=== PATIENT | female | born 1935 | race Asian ===

== ENCOUNTER 2021-12-29 15:35 | Inpatient (IN) | payer OTHER ==
[~2021-12-29] VITALS: Ht 152.4 cm; Wt 59.0 kg
[2021-12-29 16:35] VITALS: BP 124/69
[2021-12-29] MEDS ORDERED: ACETAMINOPHEN 325 MG TABLET PO PRN (17:00)
[2021-12-29] MEDS ORDERED: PNEUMOCOCCAL VACCINE POLYVALENT 0.5 ML VIAL [PPSV23] IM. ONE (19:00)
[2021-12-29 20:30] VITALS: BP 119/79
[2021-12-29] MEDS: METOPROLOL TARTRATE 25 MG TABLET PO SCH (23:20)
[2021-12-29] MEDS: AMOX TR/POT CLAV 500 MG/125 MG TABLET PO SCH (23:20)
[2021-12-29] MEDS: MELATONIN 3 MG TABLET PO PRN (23:21)
[2021-12-29] MEDS: ETHYL ALCOHOL 62% ANTISEPTIC NASAL SANITIZER 0.6 ML AMPUL NASAL SCH (23:21)
[2021-12-29] MEDS: DOCUSATE SODIUM 100 MG CAPSULE PO SCH (23:21)
[2021-12-30 07:39] LABS: BASOPHILS % (AUTO) 0.5 % (0.0-2.0); EOSINOPHILS % (AUTO) 2.5 % (1.0-6.0); HEMATOCRIT 32.8 % (36-46); HEMOGLOBIN 10.7 g/dL (12.0-16.0); LYMPHOCYTES # (AUTO) 1.2 K/uL (1.0-4.8); LYMPHOCYTES % (AUTO) 11.7 % (22.0-44.0); MEAN CORPUSCULAR HEMOGLOBIN 30.5 pg (26.0-34.0); MEAN CORPUSCULAR HGB CONC 32.7 G/dL (31.0-37.0); MEAN CORPUSCULAR VOLUME 93 fL (80-100); MONOCYTES # (AUTO) 0.8 K/uL (0.1-1.0); MONOCYTES % (AUTO) 8.2 % (2.0-9.0); NEUTROPHILS # (AUTO) 7.7 K/uL (1.8-7.7); NEUTROPHILS % (AUTO) 77.1 % (40.0-70.0); PLATELET COUNT (AUTO) 317 K/uL (150-450); RED BLOOD CELL COUNT(AUTO) 3.52 MIL/uL (4.00-5.20); RED CELL DISTRIBUTION WIDTH 14.8 % (11.5-14.5)
[2021-12-30 07:56] LABS: ALANINE AMINOTRANSFERASE 18 U/L (12-78); ALBUMIN 3.4 g/dL (3.4-5.0); ALKALINE PHOSPHATASE 63 U/L (46-116); ANION GAP 6 mmol/L (8-16); ASPARTATE AMINOTRANSFERASE 19 U/L (15-37); BILIRUBIN,TOTAL 1.5 mg/dL (0.1-1.0); CALCIUM, TOTAL 8.8 mg/dL (8.8-10.5); CARBON DIOXIDE 28 mmol/L (22-29); CHLORIDE 102 mmol/L (98-107); CREATININE 0.84 mg/dL (0.60-1.30); GLOMERULAR FILTR. RATE CALC > 60 mL/min (>60); GLUCOSE,RANDOM 109 mg/dL (70-110); POTASSIUM 4.1 mmol/L (3.5-5.1); SODIUM SERUM 136 mmol/L (136-145); TOTAL PROTEIN, SERUM 6.7 g/dL (6.4-8.2); UREA NITROGEN, BLOOD 19 mg/dL (7-18)
[2021-12-30] MEDS: MULTIVITAMINS WITH MINERALS, THERAPEUTIC TABLET PO SCH (08:07)
[2021-12-30] MEDS: AMOX TR/POT CLAV 500 MG/125 MG TABLET PO SCH ×2 (08:07→20:31)
[2021-12-30] MEDS: ASPIRIN 81 MG CHEWABLE TABLET PO SCH (08:07)
[2021-12-30] MEDS: ETHYL ALCOHOL 62% ANTISEPTIC NASAL SANITIZER 0.6 ML AMPUL NASAL SCH ×2 (08:08→20:31)
[2021-12-30] MEDS: DOCUSATE SODIUM 100 MG CAPSULE PO SCH ×2 (08:09→20:32)
[2021-12-30] MEDS: SENNA 187 MG TABLET PO SCH (08:09)
[2021-12-30] MEDS: METOPROLOL TARTRATE 25 MG TABLET PO SCH ×2 (08:09→20:32)
[2021-12-30 08:15] VITALS: BP 128/74
[2021-12-30] MEDS ORDERED: AmLODIPine BESYLATE 10 MG TABLET PO SCH (09:00)
[2021-12-30] MEDS ORDERED: ATORVASTATIN CALCIUM 10 MG TABLET PO SCH (09:00)
[2021-12-30] MEDS: BENZONATATE 100 MG CAPSULE PO PRN (20:31)
[2021-12-30] MEDS: MELATONIN 3 MG TABLET PO PRN (20:32)
[2021-12-30 20:33] VITALS: BP 129/60
[2021-12-31] MEDS: ETHYL ALCOHOL 62% ANTISEPTIC NASAL SANITIZER 0.6 ML AMPUL NASAL SCH ×2 (08:40→20:00)
[2021-12-31] MEDS: ASPIRIN 81 MG CHEWABLE TABLET PO SCH (08:40)
[2021-12-31] MEDS: AMOX TR/POT CLAV 500 MG/125 MG TABLET PO SCH ×2 (08:40→20:00)
[2021-12-31] MEDS: METOPROLOL TARTRATE 25 MG TABLET PO SCH ×2 (08:42→20:00)
[2021-12-31] MEDS: ATORVASTATIN CALCIUM 40 MG TABLET PO SCH (08:42)
[2021-12-31] MEDS: MULTIVITAMINS WITH MINERALS, THERAPEUTIC TABLET PO SCH (08:42)
[2021-12-31] MEDS: DOCUSATE SODIUM 100 MG CAPSULE PO SCH ×2 (08:42→20:00)
[2021-12-31] MEDS: AmLODIPine BESYLATE 5 MG TABLET PO SCH (08:42)
[2021-12-31] MEDS: SENNA 187 MG TABLET PO SCH (08:42)
[2021-12-31 09:02] VITALS: BP 106/72
[2021-12-31] MEDS: BENZONATATE 100 MG CAPSULE PO PRN (17:10)
[2021-12-31 21:05] VITALS: BP 133/86
[2022-01-01] MEDS: ETHYL ALCOHOL 62% ANTISEPTIC NASAL SANITIZER 0.6 ML AMPUL NASAL SCH ×2 (07:41→20:44)
[2022-01-01] MEDS: METOPROLOL TARTRATE 25 MG TABLET PO SCH ×2 (07:42→20:39)
[2022-01-01] MEDS: ASPIRIN 81 MG CHEWABLE TABLET PO SCH (07:42)
[2022-01-01] MEDS: ATORVASTATIN CALCIUM 40 MG TABLET PO SCH (07:42)
[2022-01-01] MEDS: AMOX TR/POT CLAV 500 MG/125 MG TABLET PO SCH ×2 (07:42→20:38)
[2022-01-01] MEDS: MULTIVITAMINS WITH MINERALS, THERAPEUTIC TABLET PO SCH (07:42)
[2022-01-01] MEDS: AmLODIPine BESYLATE 5 MG TABLET PO SCH (07:42)
[2022-01-01] MEDS: SENNA 187 MG TABLET PO SCH (07:44)
[2022-01-01] MEDS: DOCUSATE SODIUM 100 MG CAPSULE PO SCH ×2 (07:44→20:34)
[2022-01-01 09:12] VITALS: BP 117/64
[2022-01-01 20:00] VITALS: BP 120/67
[2022-01-01] MEDS: BENZONATATE 100 MG CAPSULE PO PRN (20:38)
[2022-01-01] MEDS: MELATONIN 3 MG TABLET PO PRN (20:39)
[2022-01-02] MEDS: ETHYL ALCOHOL 62% ANTISEPTIC NASAL SANITIZER 0.6 ML AMPUL NASAL SCH ×2 (08:00→21:37)
[2022-01-02] MEDS: ASPIRIN 81 MG CHEWABLE TABLET PO SCH (08:01)
[2022-01-02] MEDS: AmLODIPine BESYLATE 5 MG TABLET PO SCH (08:01)
[2022-01-02] MEDS: ATORVASTATIN CALCIUM 40 MG TABLET PO SCH (08:01)
[2022-01-02] MEDS: DOCUSATE SODIUM 100 MG CAPSULE PO SCH (08:02)
[2022-01-02] MEDS: SENNA 187 MG TABLET PO SCH (08:02)
[2022-01-02] MEDS: MULTIVITAMINS WITH MINERALS, THERAPEUTIC TABLET PO SCH (08:02)
[2022-01-02] MEDS: METOPROLOL TARTRATE 25 MG TABLET PO SCH ×2 (08:02→21:37)
[2022-01-02 08:07] VITALS: BP 129/62
[2022-01-02] MEDS ORDERED: DOCUSATE SODIUM 100 MG CAPSULE PO PRN (19:15)
[2022-01-02] MEDS ORDERED: SENNA 187 MG TABLET PO PRN (19:15)
[2022-01-02 21:05] VITALS: BP 125/65
[2022-01-02] MEDS: MELATONIN 3 MG TABLET PO PRN (21:38)
[2022-01-03 07:40] VITALS: BP 131/61
[2022-01-03] MEDS: ASPIRIN 81 MG CHEWABLE TABLET PO SCH (08:13)
[2022-01-03] MEDS: ETHYL ALCOHOL 62% ANTISEPTIC NASAL SANITIZER 0.6 ML AMPUL NASAL SCH ×2 (08:13→20:27)
[2022-01-03] MEDS: ATORVASTATIN CALCIUM 40 MG TABLET PO SCH (08:13)
[2022-01-03] MEDS: AmLODIPine BESYLATE 5 MG TABLET PO SCH (08:14)
[2022-01-03] MEDS: METOPROLOL TARTRATE 25 MG TABLET PO SCH ×2 (08:14→20:27)
[2022-01-03] MEDS: MULTIVITAMINS WITH MINERALS, THERAPEUTIC TABLET PO SCH (08:14)
[2022-01-03 20:10] VITALS: BP 113/64
[2022-01-03] MEDS: MELATONIN 3 MG TABLET PO PRN (20:27)
[2022-01-04] MEDS ORDERED: ATOR40TA28 PO (02:47)
[2022-01-04] MEDS ORDERED: METO25 PO (02:48)
[2022-01-04] MEDS ORDERED: AMLO-257 PO (02:48)
[2022-01-04] MEDS ORDERED: MULT-1239 PO (02:49)
[2022-01-04] MEDS: ASPIRIN 81 MG CHEWABLE TABLET PO SCH (07:43)
[2022-01-04] MEDS: ATORVASTATIN CALCIUM 40 MG TABLET PO SCH (07:43)
[2022-01-04] MEDS: ETHYL ALCOHOL 62% ANTISEPTIC NASAL SANITIZER 0.6 ML AMPUL NASAL SCH ×2 (07:43→21:04)
[2022-01-04] MEDS: MULTIVITAMINS WITH MINERALS, THERAPEUTIC TABLET PO SCH (07:44)
[2022-01-04] MEDS: METOPROLOL TARTRATE 25 MG TABLET PO SCH ×2 (07:44→21:04)
[2022-01-04] MEDS: AmLODIPine BESYLATE 5 MG TABLET PO SCH (07:44)
[2022-01-04 08:14] VITALS: BP 138/72
[2022-01-04 20:10] VITALS: BP 137/70
[2022-01-04] MEDS: MELATONIN 3 MG TABLET PO PRN (23:24)
[2022-01-05] MEDS ORDERED: ASPI-1450 PO (02:36)
[2022-01-05 07:55] VITALS: BP 141/73
[2022-01-05] MEDS: ASPIRIN 81 MG CHEWABLE TABLET PO SCH (08:12)
[2022-01-05] MEDS: METOPROLOL TARTRATE 25 MG TABLET PO SCH ×2 (08:12→20:15)
[2022-01-05] MEDS: ATORVASTATIN CALCIUM 40 MG TABLET PO SCH (08:12)
[2022-01-05] MEDS: ETHYL ALCOHOL 62% ANTISEPTIC NASAL SANITIZER 0.6 ML AMPUL NASAL SCH ×2 (08:12→20:14)
[2022-01-05] MEDS: AmLODIPine BESYLATE 5 MG TABLET PO SCH (08:13)
[2022-01-05] MEDS: MULTIVITAMINS WITH MINERALS, THERAPEUTIC TABLET PO SCH (08:13)
[2022-01-05 20:08] VITALS: BP 142/70
[2022-01-05] MEDS: APIXABAN 5 MG TABLET PO SCH (20:14)
[2022-01-05] MEDS: MELATONIN 3 MG TABLET PO PRN (20:14)
[2022-01-06 07:45] LABS: BASOPHILS % (AUTO) 0.5 % (0.0-2.0); HEMATOCRIT 34.3 % (36-46); HEMOGLOBIN 11.2 g/dL (12.0-16.0); LYMPHOCYTES # (AUTO) 1.7 K/uL (1.0-4.8); LYMPHOCYTES % (AUTO) 15.3 % (22.0-44.0); MEAN CORPUSCULAR HEMOGLOBIN 30.6 pg (26.0-34.0); MEAN CORPUSCULAR HGB CONC 32.6 G/dL (31.0-37.0); MEAN CORPUSCULAR VOLUME 94 fL (80-100); MONOCYTES # (AUTO) 0.7 K/uL (0.1-1.0); MONOCYTES % (AUTO) 6.6 % (2.0-9.0); NEUTROPHILS # (AUTO) 8.2 K/uL (1.8-7.7); NEUTROPHILS % (AUTO) 74.6 % (40.0-70.0); PLATELET COUNT (AUTO) 375 K/uL (150-450); RED BLOOD CELL COUNT(AUTO) 3.65 MIL/uL (4.00-5.20); RED CELL DISTRIBUTION WIDTH 16.2 % (11.5-14.5)
[2022-01-06 07:52] LABS: ANION GAP 7 mmol/L (8-16); CARBON DIOXIDE 28 mmol/L (22-29); CHLORIDE 107 mmol/L (98-107); CREATININE 0.85 mg/dL (0.60-1.30); GLOMERULAR FILTR. RATE CALC > 60 mL/min (>60); GLUCOSE,RANDOM 98 mg/dL (70-110); POTASSIUM 4.2 mmol/L (3.5-5.1); SODIUM SERUM 142 mmol/L (136-145); UREA NITROGEN, BLOOD 15 mg/dL (7-18)
[2022-01-06 08:10] VITALS: BP 137/71
[2022-01-06] MEDS: ETHYL ALCOHOL 62% ANTISEPTIC NASAL SANITIZER 0.6 ML AMPUL NASAL SCH (09:40)
[2022-01-06] MEDS: MULTIVITAMINS WITH MINERALS, THERAPEUTIC TABLET PO SCH (09:41)
[2022-01-06] MEDS: METOPROLOL TARTRATE 25 MG TABLET PO SCH (09:41)
[2022-01-06] MEDS: ATORVASTATIN CALCIUM 40 MG TABLET PO SCH (09:41)
[2022-01-06] MEDS: APIXABAN 5 MG TABLET PO SCH (09:41)
[2022-01-06] MEDS: AmLODIPine BESYLATE 5 MG TABLET PO SCH (09:41)
[2022-01-06] MEDS ORDERED: ATOR40TA71 PO (11:11)
[2022-01-06] MEDS ORDERED: MULT-1239 PO (11:11)
[2022-01-06] MEDS ORDERED: APIX5TAB PO (11:11)
[2022-01-06] MEDS ORDERED: METO25 PO (11:11)
[2022-01-06] MEDS ORDERED: AMLO-257 PO (11:11)
== END 2022-01-06 16:30 | disposition home health service (06) | DRG 64 ==
LOC: 2WR 15:35
PROVIDERS: ADMIT Physical Medicine & Rehabilitation; ATTEND Physical Medicine & Rehabilitation
DX: I63.511 Cerebral infarction due to unspecified occlusion or stenosis of right middle cerebral artery (principal); I62.00 Nontraumatic subdural hemorrhage, unspecified; N39.0 Urinary tract infection, site not specified; G81.94 Hemiplegia, unspecified affecting left nondominant side; R13.11 Dysphagia, oral phase; Z74.1 Need for assistance with personal care; I48.91 Unspecified atrial fibrillation; I10 Essential (primary) hypertension; E78.5 Hyperlipidemia, unspecified; R41.89 Other symptoms and signs involving cognitive functions and awareness; Z79.899 Other long term (current) drug therapy; Z79.82 Long term (current) use of aspirin
CPT/HCPCS: 70450; 80048; 80053; 85025; 87081; 92507; 92526; 92610; 93970; 97110; 97112; 97116; 97162; 97166; 97530; 97535; 99366